=== PATIENT | male | born 1975 | race Caucasian/White ===

== ENCOUNTER 2017-05-25 19:23 | Inpatient (IN) | payer OTHER ==
[~2017-05-25] VITALS: Ht 177.8 cm; Wt 122.9 kg
--- NOTE | ~2017-05-25 | HC ---
[facility] [place] [address] CONSULTATION Name: SHILPILM Edward Room #: 219-P [facility] IN M.R.#: [id number] Admission: 05/25/17 Attend Phys: Solomon Chicas MD Discharge: 05/26/17 Date of : 75 Report #: [id number] THIS REPORT FOR: //name// CC: Solomon Chicas NO PCP Patient's Chart DATE OF SERVICE: 05/26/2017 HISTORY OF PRESENT ILLNESS: The patient is a 42-year-old single white male who I was asked to see in the hospital after he complained of chest pain. The patient initially presented in November of 2014. He had complained of chest pain going into his jaw. He was admitted here to [facility]. He was noted to have nonspecific ST and T-wave changes and a troponin of 0.52. He was seen by my partner, Dr. Rubio. He underwent a cardiac catheterization in November of 2014 from the right radial artery. Results showed an ejection fraction of 60%. The LAD had an 80% mid eccentric stenosis. The circumflex had a 90% stenosis with thrombus. The right coronary was nondominant. He then placed a drug-eluting stent in the mid circumflex artery. The patient was brought back to the photo lab specialist [address] Rubio performed repeat cardiac catheterization. The patient had a drug-eluting stent placed in the LAD. The stent in the circumflex had no restenosis. He has actually done well since that time. He last saw Dr. Rubio in the Cardiology Clinic almost a year ago in June 2016. He had no complaints at that time. He actually underwent a nuclear stress test in December 2016. This showed normal perfusion with an ejection fraction of 64%. The patient is not very active at this time. He does have a lot of indigestion. He works in the shift production supervisor. Two nights ago, he was at work when he had epigastric pain, became diaphoretic, had a headache. He then went home and went to bed. He then woke up yesterday evening. Again, felt an epigastric discomfort. He describes it as an ache. He denied any shortness of breath. He had no belch with the episode. He has had no recent bleeding, fever or cough. No trauma to the chest. He came to the Emergency Room, was admitted last night. He has had no further pain. He does note exertional dyspnea. He has had no palpitations or syncope. PAST MEDICAL HISTORY: Otherwise, significant for no surgical procedures. The patient had no previous history of hypertension, diabetes, hyperlipidemia. MEDICATIONS: However, after stent he now takes Lipitor, lisinopril, metoprolol, Plavix, takes a pill for chronic headaches. ALLERGIES: He has no known drug allergies. FAMILY HISTORY: Positive for heart disease. 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 He quit smoking in 2013. No alcohol abuse. REVIEW OF SYSTEMS: He has had no history of stroke, asthma, peptic ulcer disease, liver disease. He does have history of kidney stones. He wears glasses. No chronic skin condition. PHYSICAL EXAMINATION: GENERAL: Revealed middle-aged male, who appeared in no distress. VITAL SIGNS: He had a blood pressure of 120/60, his pulse is 70, he is afebrile. HEENT: He is anicteric. Conjunctivae pink. Mucous membranes moist. NECK: Veins nondistended. No carotid bruits. Neck supple. CHEST: Clear to auscultation. CARDIOVASCULAR: Regular rate and rhythm without murmur or rub. ABDOMEN: Obese, soft, nontender, no masses were palpable. EXTREMITIES: Had no edema. Posterior tibial pulse 1+ bilaterally. SKIN: Warm, dry. NEUROLOGIC: Nonfocal. LYMPH: No adenopathy. MUSCULOSKELETAL: No joint effusion. RADIOLOGICAL DATA: His ECG on admission last night showed a sinus rhythm, small inferior Q-waves, but there were no ST or T-wave change. His workup last night in the Emergency Room, he had a portable chest x-ray that showed normal heart size, clear lung silver. LABORATORY DATA: Sodium 141, potassium 3.8, BUN 13, creatinine 1.0, glucose 164. His liver function studies were normal. Troponins all 0.04, previous triglycerides of 609 with an HDL of only 31. His white blood cell count is 8.3, hemoglobin is 15.9. His TSH is 2.5. IMPRESSION AND RECOMMENDATIONS: 1. Chest pain. Atypical for angina. No evidence of acute myocardial infarction. No EKG changes. Suspect noncardiac. He had a nuclear stress test done 5 months ago that showed no evidence of ischemia. I would not recommend stress testing nor cardiac catheterization at this time. I think it is reasonable to discharge the patient. Certainly if he had recurrent chest pain consistent with angina, I would consider repeat cardiac catheterization. 2. Previous coronary artery stenting. Since now it has been more than one year following placement of drug-eluting stents, I think it is reasonable to discontinue Plavix, continue only aspirin. [facility] [address] [place] [address] CONSULTATION Name: LM DOBBINS Room #: 219-P [facility] IN M.R.#: [id number] Admission: 05/25/17 Attend Phys: Solomon Chicas MD Discharge: 05/26/17 Date of : 75 Report #: [id number] 3. Hyperlipidemia. The patient is on a statin drug. 4. Previous tobacco abuse. <ELECTRONICALLY SIGNED> By: Zack Betancur MD, FACC 05/29/17 [id number] Zack Betancur MD, FACC /nt
--- NOTE | ~2017-05-25 | EKG ---
[place] [address] [facility] [email or web address] [address] ELECTROCARDIOGRAM REPORT Name: LM DOBBINS Room #: 219-P ADM IN M.R.#: [id number] Admission: 05/25/17 Attend Phys: Solomon Chicas MD Discharge: Date of : 75 Report #: [id number] THIS REPORT FOR: //name// [facility] ED Test Date: 2017-05-25 Test Time: 19:33:35 Pat Name: LM DOBBINS Department: Room: 219 Gender: M Manager Statistical: Bita WILDE : 1975 Requested By: Wayne Givens Order Number: [id number] MD: Oz Ta Measurements Intervals [place] Rate: 81 P: 26 MN: 121 QRS: 34 QRSD: 89 T: 30 QT: 356 QTc: 414 Interpretive Statements Sinus rhythm Abnormal R-wave progression, early transition ST elevation, consider early repolarization Compared to ECG 06/26/2015 22:00:53 No significant change was found Electronically Signed On 05-26-2017 17:20:11 CDT by Oz Ta [email or web address] <ELECTRONICALLY SIGNED> By: Oz Ta MD, [facility] 05/26/17 [id number] Oz Ta MD, [facility] /EPI
[~2017-05-25 19:23] MED LIST: CHILDREN'S ASPI81 M1 PO; EFFIENT10 MG PO; LIPITOR80 MG PO; LISINOPRIL5 MG PO; METOPROLOL TART25 MG PO; OSTERA TABLET1 EAC1 PO
[2017-05-25 19:27] VITALS: BP 148/103
[2017-05-25 19:53] LABS: ABSOLUTE NEUTROPHILS 4.1 thou/uL (1.4-8.2); BASOPHILS 0.8 % (0.0-2.0); EOSINOPHILS 4.7 % (0.0-3.0); HEMATOCRIT 46.3 % (42.0-52.0); HEMOGLOBIN 15.9 gm/dL (14.0-18.0); LYMPHOCYTES 33.7 % (24.0-44.0); MCH 30.9 pg (26.0-34.0); MCHC 34.2 g/dL (28.0-37.0); MCV 90.4 fL (80.0-100.0); MONOCYTES 11.4 % (1.0-8.0); PLATELET COUNT 202 thou/uL (150-400); POLYS 49.4 % (36.0-66.0); RBC 5.13 mil/uL (4.50-6.00); WBC 8.3 thou/uL (4.0-11.0)
[2017-05-25 20:02] LABS: ANION GAP 9 mmol/L (7-16); BUN 13 mg/dL (7-18); CALCIUM 8.9 mg/dL (8.5-10.1); CHLORIDE 108 mmol/L (98-107); CO2 24 mmol/L (21-32); GLUCOSE 164 mg/dL (74-106); POTASSIUM 3.8 mmol/L (3.5-5.1); SODIUM 141 mmol/L (136-145)
[2017-05-25 20:11] LABS: ALBUMIN 3.9 g/dL (3.4-5.0); SGOT 22 U/L (15-37); SGPT 43 U/L (30-65); TOTAL BILIRUBIN 0.3 mg/dL (<0.1-1.0); TOTAL PROTEIN 7.2 g/dL (6.4-8.2); TROPONIN-I < 0.04 ng/mL (<0.06)
[2017-05-25] MEDS ORDERED: PLAVIX 75 MG TA75 MG PO (20:22)
[2017-05-25 21:13] VITALS: BP 110/60
[2017-05-25 21:49] VITALS: BP 117/60
[2017-05-25] MEDS ORDERED: TOPAMAX 25 MG T25 M1 PO (22:45)
[2017-05-25 23:34] LABS: CHOLESTEROL 187 mg/dL (<200); HDL CHOLESTEROL 31 mg/dL (>40); TRIGLYCERIDE 609 mg/dL (<150); VLDL 122 mg/dL (<40)
[2017-05-25 23:40] LABS: SERUM ASSESSMENT Slight Lipemia
[2017-05-25 23:49] VITALS: BP 97/57
[2017-05-26 04:09] VITALS: BP 108/62
[2017-05-26 08:42] VITALS: BP 126/16
[2017-05-26] MEDS ORDERED: PROTONIX40 M1 PO (10:09)
[2017-05-26 12:03] VITALS: BP 116/71
[2017-05-26 16:00] VITALS: BP 128/72
[2017-05-26 17:11] VITALS: BP 128/72
[2017-05-26 23:08] LABS: GLYCOHEMOGLOBIN (HGB A1C) 6.4 % (4.8-5.6)
== END 2017-05-26 17:29 | disposition home or self-care (01) | DRG 392 ==
LOC: ER 19:23 → EROBS 20:35 → 2N 20:35 → ENTRNSPT 05-26 17:21 → 2N 05-26 17:29
PROVIDERS: Emergency Medicine; Nurse Practitioner Acute Care
DX: K21.9 Gastro-esophageal reflux disease without esophagitis (principal); I25.119 Atherosclerotic heart disease of native coronary artery with unspecified angina pectoris; I10 Essential (primary) hypertension; E78.5 Hyperlipidemia, unspecified; I25.10 Atherosclerotic heart disease of native coronary artery without angina pectoris; G43.909 Migraine, unspecified, not intractable, without status migrainosus; E11.9 Type 2 diabetes mellitus without complications; Z95.5 Presence of coronary angioplasty implant and graft; Z79.82 Long term (current) use of aspirin; Z79.899 Other long term (current) drug therapy; Z98.818 Other dental procedure status; Z87.442 Personal history of urinary calculi; Z82.49 Family history of ischemic heart disease and other diseases of the circulatory system; Z83.3 Family history of diabetes mellitus; Z87.891 Personal history of nicotine dependence
CPT/HCPCS: 10081

== ENCOUNTER 2021-03-12 20:58 | Emergency (ER) | payer OTHER ==
[~2021-03-12] VITALS: Ht 177.8 cm; Wt 127.0 kg
[~2021-03-12 20:58] MED LIST changes: +PLAVIX 75 MG TA75 MG PO; +PROTONIX40 M1 PO; +TOPAMAX 25 MG T25 M1 PO
[2021-03-12] MEDS ORDERED: METFORMIN HCL500 M3 PO (21:18)
[2021-03-12] MEDS ORDERED: OMEPRAZOLE40 MG PO (21:19)
[2021-03-12 21:44] LABS: ABSOLUTE NEUTROPHILS 3.3 thou/uL (1.4-8.2); BASOPHILS 0.9 % (0.0-2.0); EOSINOPHILS 4.8 % (0.0-3.0); HEMATOCRIT 45.9 % (42.0-52.0); HEMOGLOBIN 15.3 gm/dL (14.0-18.0); LYMPHOCYTES 31.4 % (24.0-44.0); MCH 30.3 pg (26.0-34.0); MCHC 33.4 g/dL (28.0-37.0); MCV 90.7 fL (80.0-100.0); MONOCYTES 10.6 % (1.0-8.0); PLATELET COUNT 221 thou/uL (150-400); POLYS 52.3 % (36.0-66.0); RBC 5.06 mil/uL (4.50-6.00); RDW 14.2 % (10.5-14.5); WBC 6.2 thou/uL (4.0-11.0)
[2021-03-12 22:00] LABS: CALCIUM 9.5 mg/dL (8.5-10.1); POTASSIUM 4.1 mmol/L (3.5-5.1)
[2021-03-12 22:04] LABS: ALBUMIN 3.9 g/dL (3.4-5.0); TOTAL BILIRUBIN 0.4 mg/dL (0.2-1.0); TOTAL PROTEIN 6.9 g/dL (6.4-8.2)
[2021-03-13 01:29] VITALS: BP 130/60
--- NOTE | 2021-03-15 07:57 | EKG ---
[place] [address] [facility] [place] [address] ELECTROCARDIOGRAM REPORT Name: LM DOBBINS Room #: [facility]#: [id number] Admission: 03/12/21 Attend Phys: Discharge: 03/13/21 Date of : 75 Report #: [id number] [facility] ED Test Date: 2021-03-12 Test Time: 21:03:00 Pat Name: LM DOBBINS Department: Room: Gender: Online Activist: MYAH LOPEZ : 1975 Requested By: Gifty Womack Order Number: [id number] MD: Oz Ta Measurements Intervals [place] Rate: 76 P: 7 MT: 115 QRS: 45 QRSD: 93 T: 31 QT: 346 QTc: 390 Interpretive Statements Sinus rhythm No significant abnormality Compared to ECG 05/25/2017 19:33:35 No significant changes Electronically Signed On 03-15-2021 7:57:01 MANAGER OF LEARNING by Oz Ta [email or web address] <ELECTRONICALLY SIGNED> By: Oz Ta MD, [facility] 03/15/21 0757 [id number] 02 Oz Ta MD, FACC /EPI
== END 2021-03-13 01:32 | disposition home or self-care (01) ==
LOC: ER 20:58
PROVIDERS: Emergency Medicine
DX: R07.89 Other chest pain (principal); I10 Essential (primary) hypertension; G43.909 Migraine, unspecified, not intractable, without status migrainosus; K21.9 Gastro-esophageal reflux disease without esophagitis; E78.5 Hyperlipidemia, unspecified; I25.10 Atherosclerotic heart disease of native coronary artery without angina pectoris; I25.2 Old myocardial infarction; Z87.442 Personal history of urinary calculi; Z98.890 Other specified postprocedural states; Z79.82 Long term (current) use of aspirin; Z79.84 Long term (current) use of oral hypoglycemic drugs; Z79.899 Other long term (current) drug therapy